=== PATIENT | female | born 1955 | race Caucasian/White ===

== ENCOUNTER → 2016-12-25 | Outpatient (CLI) | payer MEDICARE | LOC: RAD 08:07 | PROVIDERS: ATTEND Internal Medicine Gastroenterology | DX: R10.13 Epigastric pain (principal) | CPT/HCPCS: 78264; A9541 ==

== ENCOUNTER 2016-12-28 17:12 | Emergency (ER) | payer MEDICARE ==
--- NOTE | 2016-12-28 18:57 | ER Document Report ---
ED Medical Screen (RME) - General Time seen by provider: 18:45 Mode of Arrival: Wheelchair Information source: Patient TRAVEL OUTSIDE OF THE U[place] IN LAST 30 DAYS: No - General Chief Complaint: Abdominal Pain Stated Complaint: ABDOMINAL/BACK PAIN Notes: Patient is a 61-year-old female presenting to the emergency department for abdominal and back pain. Patient states she is unable to walk and she has pain that radiates from her mid back down into the back side of her legs. Patient has multiple physicians, care [facility] that she sees. Patient states that she sees Dr. Lawson for her primary care physician and pain management. Patient sees Dr. Belcher for more pain management. Patient has also seen Dr. Esteves for GI. Patient has not experienced any trauma or fall. Patient has recently started to use a walker that was prescribed by Dr. Lawson and has been using it for about 2 weeks. Patient states she has a history of cholecystectomy, kidney stones, diverticulitis. Patient states she was given Toradol and Phenergan at the urgent care without relief. Patient states Toradol usually resolves her pain, but this pain is different. An assessment has been completed on this patient. Patient is in no respiratory distress and lungs are clear, heart is regular, abdomen is palpated, however, the patient is in a seated position and needs further assessment to complete the completed into bed. Patient will be brought to a room in the back for this further assessment. (RAFFI RIVERA) - Related Data Allergies/Adverse Reactions: lisinopril Allergy (Verified 12/28/16 18:21) Sulfa (Sulfonamide Antibiotics) Allergy (Verified 12/28/16 18:21) Past Medical History - Past Medical History Cardiac Medical History: Reports: Hx Congestive Heart Failure - diastolic, Hx Coronary Artery Disease, Hx Hypertension Pulmonary Medical History: Reports: Hx Bronchitis, Hx COPD Endocrine Medical History: Reports: Hx Diabetes Mellitus Type 2 Renal/ Medical History: Denies: Hx Peritoneal Dialysis GI Medical History: Reports: Hx Gastroesophageal Reflux Disease Past Surgical History: Reports: Hx Cholecystectomy Physical Exam - Respiratory Respiratory status: No respiratory distress Breath sounds: Normal - Cardiovascular Rhythm: Regular Course - Re-evaluation Re-evalutation: 12/28/16 18:59 Patient presents emergency, chief plain of back pain that she can't walk and abdominal pain. She states that the pain is intermittent back radiating down both legs. She has chronic back pain ankylosing spondylitis and sees a specialist in [place] she's had 2 recent steroid injections which haven't work she's supposed be getting a third one next week. Her primary care doctor has her on tramadol and Zanaflex as well as oxycodone. She states pain is a little bit worse comes around into her left groin no associated nausea vomiting diarrhea fevers chills or change in appetite no urinary complaints or loss of bowel or bladder function. She recently had a study that showed delayed gastric emptying she was told she had gastroparesis. On examination she is well- appearing nontoxic sitting in the upright position. I can't get a full assessment is no bed in the triage area layered out but her belly is soft with good bowel sounds. Good femoral dorsalis pedis posterior tibial pulses no obvious midline cervical thoracic or lumbar tenderness reflexes are symmetrical 2 point discrimination capillary refill are intact. The urgent care saw her gave her Toradol she said that didn't help her pain major some labs on her but not a CBC your urine electrolytes and liver enzymes are completely normal. I added a CBC and urine and she is going to go to the back to be further dispose lay down and have a full examination performed. 12/28/16 19:00 I personally performed the services described in the documentation reviewed the documentation recorded by my scribe in my presence and it accurately and completely records my words and actions (LANA ANSARI) - Vital Signs Vital signs: Temp Pulse Resp BP Pulse Ox 98.5 F 76 14 146/75 H 99 12/28/16 17:29 12/28/16 17:29 12/28/16 17:29 12/28/16 17:29 12/28/16 17:29 Scribe Documentation - Scribe Written by Ranjite:: Raffi Rivera 12/28/16 19:00 acting as scribe for :: Mika
[2016-12-28 19:35] LABS: APPEARANCE,URINE SLIGHTLY-CLOUDY; BILIRUBIN,URINE NEGATIVE (NEGATIVE); GLUCOSE, URINE NEGATIVE (NEGATIVE); KETONES,URINE NEGATIVE (NEGATIVE); LEUKOCYTE ESTERASE,URINE NEGATIVE (NEGATIVE); NITRITE,URINE NEGATIVE (NEGATIVE); PROTEIN,URINE NEGATIVE (NEGATIVE); URINE SPECIFIC GRAVITY 1.014; UROBILINOGEN,URINE NEGATIVE mg/dL (<2.0)
[2016-12-28 19:37] LABS: ABSOLUTE EOSINOPHILS # (AUTO) 0.1 10^3/uL (0.0-0.6); ABSOLUTE LYMPHOCYTES (AUTO) 3.2 10^3/uL (0.5-4.7); ABSOLUTE MONOCYTES (AUTO) 0.7 10^3/uL (0.1-1.4); ABSOLUTE NEUT (AUTO) 4.4 10^3/uL (1.7-8.2); BASOPHILS % (AUTO) 0.6 % (0-2); EOSINOPHILS % (AUTO) 1.1 % (0-6); HEMATOCRIT 46.2 % (36.0-47.0); HEMOGLOBIN 15.9 g/dL (12.0-15.5); HGB HCT DIFFERENCE 1.5; LYMPHOCYTES % (AUTO) 38.1 % (13-45); MEAN CORPUSCULAR HEMOGLOBIN 30.1 pg (27.0-33.4); MEAN CORPUSCULAR HGB CONC 34.3 g/dL (32.0-36.0); MEAN CORPUSCULAR VOLUME 88 fl (80-97); MONOCYTES % (AUTO) 8.1 % (3-13); RED BLOOD COUNT 5.27 10^6/uL (3.72-5.28); RED CELL DISTRIBUTION WIDTH 13.8 % (11.5-14.0); SEGMENTED NEUTROPHILS % (AUTO) 52.1 % (42-78); WHITE BLOOD COUNT 8.4 10^3/uL (4.0-10.5)
[2016-12-28] MEDS ORDERED: ONDANSETRON 4 MG TAB.RAPDIS PO ONE (19:57)
[2016-12-28] MEDS ORDERED: MORPHINE SULFATE 10 MG/ML INJ IV ONE ×2 (20:35→23:27)
[2016-12-28] MEDS ORDERED: ONDANSETRON HCL INJ/PF 4 MG/2 ML SDV IV ONE ×2 (20:35→23:27)
[2016-12-28] MEDS ORDERED: NORMAL SALINE 1000 ML 500 ML IV PRN (20:35)
--- NOTE | 2016-12-28 20:37 | ER Document Report ---
ED GI/ - General Chief Complaint: Abdominal Pain Stated Complaint: ABDOMINAL/BACK PAIN Time seen by provider: 20:36 Mode of Arrival: Wheelchair Information source: Patient TRAVEL OUTSIDE OF THE [place] IN LAST 30 DAYS: No - HPI Patient complains to provider of: Abdominal pain, Flank pain Onset: Yesterday Timing/Duration: Gradual, Persistent Quality of pain: Achy, Fullness, Pressure, Sharp, Stabbing Severity at maximum: Moderate Severity in ED: Moderate Pain Level: 4 Location: Epigastric, Left flank Associated symptoms: Chills, Diarrhea, Nausea. denies: Vomiting Exacerbated by: Movement Relieved by: Denies Similar symptoms previously: Yes Recently seen / treated by doctor: Yes Notes: 12/29/16 03:40 Patient is a 61-year-old female presenting to the emergency department for left- sided and epigastric abdominal and back pain that have been present since approximately 6 PM yesterday. Patient states she is unable to walk and she has pain that radiates from her mid back down into the back side of her legs. Patient has multiple physicians, with [facility] that she sees. Patient states that she sees Dr. Lawson for her primary care physician and pain management. Patient sees Dr. Belcher for more pain management. Patient has also seen Dr. Esteves for GI. Patient has not experienced any trauma or fall. Patient has recently started to use a walker that was prescribed by Dr. Lawson and has been using it for about 2 weeks or difficulty walking has progressed. Patient states she has a history of cholecystectomy, kidney stones, diverticulitis. Patient states she was given Toradol and Phenergan at the urgent care without relief. Patient states Toradol usually resolves her pain, but this pain is worse than her usual GI pain. - Related Data Allergies/Adverse Reactions: lisinopril Allergy (Verified 12/28/16 18:21) Sulfa (Sulfonamide Antibiotics) Allergy (Verified 12/28/16 18:21) Past Medical History - General Information source: Patient - Social History Smoking Status: Never Smoker Family History: Reviewed & Not Pertinent Patient has suicidal ideation: No Patient has homicidal ideation: No - Past Medical History Cardiac Medical History: Reports: Hx Congestive Heart Failure - diastolic, Hx Coronary Artery Disease, Hx Hypertension Pulmonary Medical History: Reports: Hx Bronchitis, Hx COPD Endocrine Medical History: Reports: Hx Diabetes Mellitus Type 2 Renal/ Medical History: Denies: Hx Peritoneal Dialysis GI Medical History: Reports: Hx Gastroesophageal Reflux Disease Past Surgical History: Reports: Hx Cholecystectomy Review of Systems - Review of Systems Constitutional: No symptoms reported EENT: No symptoms reported Cardiovascular: No symptoms reported Respiratory: No symptoms reported Gastrointestinal: See HPI Genitourinary: No symptoms reported Female Genitourinary: No symptoms reported Musculoskeletal: See HPI Skin: No symptoms reported Hematologic/Lymphatic: No symptoms reported Neurological/Psychological: No symptoms reported -: Yes All other systems reviewed and negative Physical Exam - Vital signs Vitals: Temp Pulse Resp BP Pulse Ox 98.5 F 76 14 146/75 H 99 12/28/16 17:29 12/28/16 17:29 12/28/16 17:29 12/28/16 17:29 12/28/16 17:29 Interpretation: Normal - General General appearance: Alert In distress: None - HEENT Head: Normocephalic, Atraumatic Eyes: Normal Conjunctiva: Normal Extraocular movements intact: Yes Eyelashes: Normal Pupils: PERRL - Respiratory Respiratory status: No respiratory distress Chest status: Nontender Breath sounds: Normal Chest palpation: Normal - Cardiovascular Rhythm: Regular Heart sounds: Normal auscultation Murmur: No - Abdominal Inspection: Normal Distension: No distension Bowel sounds: Normal Tenderness: Tender - Epigastric and left flank Organomegaly: No organomegaly - Back Back: Tender - Tender to palpate paraspinal musculature - Extremities General upper extremity: Normal inspection, Nontender, Normal color, Normal ROM , Normal temperature General lower extremity: Normal inspection, Nontender, Normal color, Normal temperature. No: Mark's sign - Neurological Neuro grossly intact: Yes Cognition: Normal Orientation: AAOx4 Miguel Coma Scale Eye Opening: Spontaneous Burton Coma Scale Verbal: Oriented Burton Coma Scale Motor: Obeys Commands Miguel Coma Scale Total: 15 Speech: Normal - Psychological Associated symptoms: Normal affect, Normal mood - Skin Skin Temperature: Warm Skin Moisture: Dry Skin Color: Normal Course - Re-evaluation Re-evalutation: 12/28/16 23:28 Patient resting comfortably, reports feeling much better, lab and imaging findings discussed with her at bedside which are unremarkable, patient will be discharged with instructions for follow-up and advised to return if symptoms worsen, patient acknowledges understanding and agreement with this plan - Vital Signs Vital signs: Temp Pulse Resp BP Pulse Ox 97.9 F 69 14 135/76 H 96 12/29/16 00:34 12/29/16 00:34 12/29/16 00:34 12/29/16 00:34 12/29/16 00:34 - Laboratory Result Diagrams: 12/28/16 19:00 12/28/16 19:00 Laboratory results interpreted by me: 12/28/16 12/28/16 12/28/16 19:00 19:00 19:06 Hgb 15.9 H Glucose 112 H Calcium 10.4 H ALT 56 H Urine Ascorbic Acid 40 H - Diagnostic Test Radiology reviewed: Image reviewed, Reports reviewed Discharge - Discharge Clinical Impression: Abdominal pain Qualifiers: Abdominal location: generalized Qualified Code(s): R10.84 - Generalized abdominal pain Back pain Qualifiers: Back pain location: back pain in unspecified location Chronicity: chronic Back pain laterality: unspecified Qualified Code(s): M54.9 - Dorsalgia, unspecified Condition: Stable Disposition: HOME, SELF-CARE Instructions: Abdominal Pain ([facility]), Antinausea Medication ([facility]), Low Back Pain ([facility]), Chronic Back Pain ([facility]) Additional Instructions: Follow up with your primary care provider in one to 2 days. Return to the emergency room immediately if symptoms worsen or any additional concerns. Prescriptions: Promethazine HCl [Phenergan 25 mg Tablet] 25 - 50 mg PO ASDIR PRN #12 tablet PRN Reason:
[2016-12-28 20:41] LABS: ALANINE AMINOTRANSFERASE 56 U/L (9-52); ALBUMIN 4.6 g/dL (3.5-5.0); ALKALINE PHOSPHATASE 93 U/L (38-126); ANION GAP 19 (5-19); ASPARTATE AMINO TRANSFERASE 33 U/L (14-36); BILIRUBIN,DIRECT 0.4 mg/dL (0.0-0.4); BILIRUBIN,TOTAL 0.7 mg/dL (0.2-1.3); BLOOD UREA NITROGEN 13 mg/dL (7-20); CALCIUM 10.4 mg/dL (8.4-10.2); CARBON DIOXIDE 23 mmol/L (22-30); CHLORIDE 103 mmol/L (98-107); CREATININE RESULT 0.81 mg/dL (0.52-1.25); GLUCOSE 112 mg/dL (75-110); POTASSIUM 3.6 mmol/L (3.6-5.0); SODIUM 144.9 mmol/L (137-145); TOTAL PROTEIN 7.8 g/dL (6.3-8.2)
[2016-12-28] MEDS ORDERED: ONDANSETRON ODT 4 MG TAB (6 TAB/DSPK) PO PRN (23:29)
[2016-12-29 00:48] VITALS: BP 135/76
== END 2016-12-29 00:40 | disposition home or self-care (01) ==
LOC: ER 17:12
DX: R10.84 Generalized abdominal pain (principal); M54.9 Dorsalgia, unspecified; R10.13 Epigastric pain; Z79.899 Other long term (current) drug therapy
CPT/HCPCS: 96376; 99284; 96374; 96375; 36415; 83690; 85025; 80053; 81001; 74177; J2270 ×2; J2405 ×2; A9270

== ENCOUNTER 2018-08-18 20:01 | Emergency (ER) | payer MEDICARE ==
[2018-08-18 21:02] LABS: ABSOLUTE EOSINOPHILS # (AUTO) 0.1 10^3/uL (0.0-0.6); ABSOLUTE LYMPHOCYTES (AUTO) 1.7 10^3/uL (0.5-4.7); ABSOLUTE MONOCYTES (AUTO) 0.7 10^3/uL (0.1-1.4); ABSOLUTE NEUT (AUTO) 4.4 10^3/uL (1.7-8.2); BASOPHILS % (AUTO) 0.7 % (0-2); EOSINOPHILS % (AUTO) 1.6 % (0-6); HEMATOCRIT 51.5 % (36.0-47.0); HEMOGLOBIN 17.6 g/dL (12.0-15.5); LYMPHOCYTES % (AUTO) 24.5 % (13-45); MEAN CORPUSCULAR HEMOGLOBIN 31.1 pg (27.0-33.4); MEAN CORPUSCULAR HGB CONC 34.2 g/dL (32.0-36.0); MEAN CORPUSCULAR VOLUME 91 fl (80-97); MONOCYTES % (AUTO) 10.7 % (3-13); PLATELET COUNT 247 10^3/uL (150-450); RED BLOOD COUNT 5.68 10^6/uL (3.72-5.28); RED CELL DISTRIBUTION WIDTH 13.2 % (11.5-14.0); SEGMENTED NEUTROPHILS % (AUTO) 62.5 % (42-78); TOTAL CELLS COUNTED % (AUTO) 100 %
--- NOTE | 2018-08-18 21:26 | RADIOLOGY REPORT (SQ) ---
EXAM DESCRIPTION: XR CHEST 1 VIEW COMPLETED DATE/TME: 08/18/2018 20:53 CLINICAL HISTORY: 62 years Female SOB; Hx diastolic HF COMPARISON: None. FINDINGS: The cardiomediastinal silhouette appears unremarkable. No consolidating infiltrates or pleural effusions. No pneumothorax. IMPRESSION: No acute abnormality is identified.
--- NOTE | 2018-08-18 21:39 | ER Document Report ---
ED General - General Chief Complaint: Blood Pressure Problem Stated Complaint: BLOOD PRESSURE ISSUE Time Seen by Provider: 08/18/18 20:30 Notes: Patient is a 62-year-old female with a past medical history of hypertension, diastolic heart failure, chronic pain, presents with concerns regarding low blood pressure. The patient states that she woke up last night having a nightmare, felt she was suffocating. States that she took her blood pressure and found it to be 148 on 108 so she took 10 mg of hydralazine and an unknown dose of torsemide. States that she checked her blood pressure several times a day, that had not improved since that she took an additional 20 mill grams of hydralazine as well as an extra dose of losartan. Tonight she states that she began to feel increasingly lightheaded and generally unwell, took her blood pressure and found to be in the 80s systolic prompting her to come to the emergency department. She denies a history of similar events in the past. She states that she has not been directed by her doctor to take extra quantities of medications for certain blood pressures. She denies any current chest pain or shortness of breath. Nothing seems to improve or worsen her current symptoms. TRAVEL OUTSIDE OF THE [place] IN LAST 30 DAYS: No - Related Data Allergies/Adverse Reactions: lisinopril Allergy (Verified 08/18/18 22:28) Sulfa (Sulfonamide Antibiotics) Allergy (Verified 08/18/18 22:28) Past Medical History - General Information source: Patient - Social History Smoking Status: Never Smoker Frequency of alcohol use: None Drug Abuse: None Lives with: Family Family History: Reviewed & Not Pertinent - Past Medical History Cardiac Medical History: Reports: Hx Congestive Heart Failure - diastolic, Hx Coronary Artery Disease, Hx Hypertension Pulmonary Medical History: Reports: Hx Bronchitis, Hx COPD Endocrine Medical History: Reports: Hx Diabetes Mellitus Type 2 Renal/ Medical History: Reports: Hx Kidney Stones. Denies: Hx Peritoneal Dialysis GI Medical History: Reports: Hx Gastroesophageal Reflux Disease Past Surgical History: Reports: Hx Abdominal Surgery - 3lap, Hx Appendectomy, Hx Section - 3, Hx Cholecystectomy, Hx Hysterectomy - Immunizations Hx Diphtheria, Pertussis, Tetanus Vaccination: Yes Hx Pneumococcal Vaccination: 09/03/13 Review of Systems - Review of Systems Notes: Constitutional: Negative for fever. HENT: Negative for sore throat. Eyes: Negative for visual changes. Cardiovascular: Negative for chest pain. Respiratory: Negative for shortness of breath. Gastrointestinal: Negative for abdominal pain, vomiting or diarrhea. Genitourinary: Negative for dysuria. Musculoskeletal: Negative for back pain. Skin: Negative for rash. Neurological: Negative for headaches, weakness or numbness. 10 point ROS negative except as marked above and in HPI. Physical Exam - Vital signs Vitals: Temp Pulse BP Pulse Ox 97.5 F 77 86/58 L 94 08/18/18 20:08 08/18/18 20:08 08/18/18 20:08 08/18/18 20:08 Interpretation: Hypotensive Notes: PHYSICAL EXAMINATION: GENERAL: Well-appearing, well-nourished and in no acute distress. HEAD: Atraumatic, normocephalic. EYES: Pupils equal round and reactive to light, extraocular movements intact, sclera anicteric, conjunctiva are normal. ENT: nares patent, oropharynx clear without exudates. Moist mucous membranes. NECK: Normal range of motion, supple without lymphadenopathy LUNGS: Breath sounds clear to auscultation bilaterally and equal. No wheezes rales or rhonchi. HEART: Regular rate and rhythm without murmurs ABDOMEN: Soft, nontender, normoactive bowel sounds. No guarding, no rebound. No masses appreciated. EXTREMITIES: Normal range of motion, no pitting or edema. No cyanosis. NEUROLOGICAL: No focal neurological deficits. Moves all extremities spontaneously and on command. PSYCH: Normal mood, normal affect. SKIN: Warm, Dry, normal turgor, no rashes or lesions noted. Course - Re-evaluation Re-evalutation: 08/18/18 21:48 Patient presents with concerns of low blood pressure after she took, 1 extra tablet 30 mg of hydralazine extra beyond her normal, an extra dose of torsemide , as well as an extra dose of losartan after she woke up last night after having a nightmare, felt like she could not breathe, checked her blood pressure and found her blood pressure to be 146 on 108. The patient denies any symptoms beyond concerned about her blood pressure. Labs are obtained by nursing staff, all were canceled except CBC as these are not indicated given the absence of any complaints beyond low blood pressure. A chest x-ray was also obtained which is otherwise unremarkable. Patient's blood pressure has remained relatively stable in the low 100s to upper 90s here in the emergency department. I do not see any indication for hospitalization or further workup at this point given the patient does have a clear examination for why this occurred. I have strongly advised her to not take extra medications under any circumstance without the direct supervision of a physician. At this time will discharge with return precautions and follow-up recommendations. Verbal discharge instructions given a the bedside and opportunity for questions given. Medication warnings reviewed. Patient is in agreement with this plan and has verbalized understanding of return precautions and the need for primary care follow-up in the next 24-72 hours. - Vital Signs Vital signs: Temp Pulse Resp BP Pulse Ox 97.5 F 77 12 108/58 L 94 08/18/18 20:08 08/18/18 20:08 08/18/18 23:31 08/18/18 23:31 08/18/18 23:31 - Laboratory Result Diagrams: 08/18/18 20:47 08/18/18 20:47 Laboratory results interpreted by me: 08/18/18 20:47 RBC 5.68 H Hgb 17.6 H Hct 51.5 H - Diagnostic Test Radiology reviewed: Image reviewed, Reports reviewed Radiology results interpreted by me: 08/18/18 21:50 Chest x-ray: No acute infiltrate or pneumothorax Discharge - Discharge Clinical Impression: Medication error Hypotension Qualifiers: Hypotension type: unspecified hypotension type Qualified Code(s): I95.9 - Hypotension, unspecified Condition: Good Disposition: HOME, SELF-CARE Additional Instructions: Please never take more of your medications are prescribed to you. Your blood pressure is moderately low today due to taking extra hydralazine, losartan, as well as torsemide. Please follow-up with your general physician regarding today 's concerns. Please be sure to drink plenty of fluid over the next several days. Referrals: LIAT DUNCAN MD [Primary Care Provider] - Follow up as needed
[2018-08-18] MEDS ORDERED: NORMAL SALINE 1000 ML 500 ML IV ONE (21:50)
[2018-08-18 23:34] VITALS: BP 108/58
--- NOTE | 2018-08-19 00:50 | EKG REPORT ---
SEVERITY:- ABNORMAL ECG - SINUS RHYTHM LEFT ANTERIOR FASCICULAR BLOCK PROBABLE LEFT VENTRICULAR HYPERTROPHY : Confirmed by: Anabel Briggs MD 19-Aug-2018 00:49:11
== END 2018-08-18 23:52 | disposition home or self-care (01) ==
LOC: ER 20:01
DX: T50.901A Poisoning by unspecified drugs, medicaments and biological substances, accidental (unintentional), initial encounter (principal); I95.9 Hypotension, unspecified; R42 Dizziness and giddiness; I11.0 Hypertensive heart disease with heart failure; I50.30 Unspecified diastolic (congestive) heart failure; J44.9 Chronic obstructive pulmonary disease, unspecified; E11.9 Type 2 diabetes mellitus without complications
CPT/HCPCS: 93005; 99284; 36415; 85025; 71045; 93010; J7030

== ENCOUNTER 2019-04-05 17:02 | Emergency (ER) | payer MEDICARE ==
--- NOTE | 2019-04-05 17:40 | ER Document Report ---
ED Medical Screen (RME) - General Chief Complaint: Fall Injury Stated Complaint: FALL Time Seen by Provider: 04/05/19 17:30 Primary Care Provider: LIAT DUNCAN MD [Primary Care Provider] - Follow up as needed Mode of Arrival: Wheelchair Information source: Patient Notes: This 63 year old female presents to the ED with c/o left side hip pain since sunday. Patient [place] up, got dizzy and fell over onto her hip. She reports since then that is been hard to walk, limited weight bearing to the left leg, shuffling when she walks. Patient is on pain managment for ankylosing spondylosis polyarthritis. Patient takes tramadol for pain and is taking them at all now. She also reports she uses CBD in him for the pain. Also has history of DM, CHF. Patient has no other complaints such as fever vomiting diarrhea. Denies chest pain shortness of breath. I have greeted and performed a rapid initial assessment of this patient. A comprehensive ED assessment and evaluation of the patient, analysis of test results and completion of the medical decision making process will be conducted by additional ED providers. Dictation of this chart was performed using voice recognition software; therefore, there may be some unintended grammatical errors. TRAVEL OUTSIDE OF THE [place] IN LAST 30 DAYS: No - Related Data Allergies/Adverse Reactions: lisinopril Allergy (Verified 04/05/19 17:04) Sulfa (Sulfonamide Antibiotics) Allergy (Verified 04/05/19 17:04) Past Medical History - Past Medical History Cardiac Medical History: Reports: Hx Congestive Heart Failure - diastolic, Hx Coronary Artery Disease, Hx Hypertension Pulmonary Medical History: Reports: Hx Bronchitis, Hx COPD Endocrine Medical History: Reports: Hx Diabetes Mellitus Type 2 Renal/ Medical History: Reports: Hx Kidney Stones. Denies: Hx Peritoneal Dialysis GI Medical History: Reports: Hx Gastroesophageal Reflux Disease Past Surgical History: Reports: Hx Abdominal Surgery - 3lap, Hx Appendectomy, Hx Section - 3, Hx Cholecystectomy, Hx Hysterectomy - Immunizations Hx Diphtheria, Pertussis, Tetanus Vaccination: Yes Physical Exam - Vital signs Vitals: Temp Pulse Resp BP Pulse Ox 98.0 F 65 18 143/69 H 95 04/05/19 17:09 04/05/19 17:09 04/05/19 17:09 04/05/19 17:09 04/05/19 17:09 Course - Vital Signs Vital signs: Temp Pulse Resp BP Pulse Ox 98.0 F 65 18 143/69 H 95 04/05/19 17:09 04/05/19 17:09 04/05/19 17:09 04/05/19 17:09 04/05/19 17:09 Doctor's Discharge - Discharge Referrals: LIAT DUNCAN MD [Primary Care Provider] - Follow up as needed
--- NOTE | 2019-04-05 18:41 | RADIOLOGY REPORT (SQ) ---
EXAM DESCRIPTION: HIP LEFT AP/LATERAL COMPLETED DATE/TIME: 04/05/2019 6:31 pm REASON FOR STUDY: fell in ocean, pain COMPARISON: None. NUMBER OF VIEWS: Two views. TECHNIQUE: AP pelvis and additional frog-leg view of the left hip. LIMITATIONS: None. FINDINGS: MINERALIZATION: Normal. LEFT HIP: No fracture or dislocation. No worrisome bone lesions. RIGHT HIP: No fracture or dislocation. No worrisome bone lesions. PUBIS AND ISCHIUM: No fracture. PELVIS: No fracture. SACRUM: No fracture or dislocation. No worrisome bone lesions. LOWER LUMBAR SPINE: No fracture or dislocation. No worrisome bone lesions. No significant disc disea se. SOFT TISSUES: No findings. OTHER: No other significant finding. IMPRESSION: NEGATIVE STUDY OF THE LEFT HIP AND PELVIS. NO RADIOGRAPHIC EVIDENCE OF ACUTE INJURY. TECHNICAL DOCUMENTATION: JOB ID: [id number] [employer]- All Rights Reserved Reading location - IP/workstation name: [email or web address]
--- NOTE | 2019-04-05 19:36 | ER Document Report ---
HPI - HPI Patient complains to provider of: hip pain Time Seen by Provider: 04/05/19 17:30 Onset: Other Onset/Duration: Sudden, Persistent Quality of pain: Achy Severity: Moderate Pain Level: 2 Context: This 63 year old female presents to the ED with c/o left side hip pain since sunday. [place], got dizzy and fell over onto her hip. She reports since then that it has been hard to walk, limited weight bearing to the left leg, shuffling when she walks. Patient is on pain managment for ankylosing spondylosis polyarthritis. Patient takes tramadol for pain and is taking her own tramadol now. She was offered a tramadol but she wanted to take her own med. She also reports she uses CBD and hemp for the pain. Also has history of DM, CHF. Patient has no other complaints such as fever vomiting diarrhea. Denies chest pain shortness of breath. Associated Symptoms: None Exacerbated by: Movement, Walking Relieved by: Denies Similar symptoms previously: Yes Recently seen / treated by doctor: No - REPRODUCTIVE Reproductive: DENIES: : Past Medical History - General Information source: Patient - Social History Smoking Status: Current Every Day Smoker Chew tobacco use (# tins/day): No Frequency of alcohol use: Occasional Drug Abuse: None Lives with: Family Family History: Reviewed & Not Pertinent Patient has suicidal ideation: No Patient has homicidal ideation: No - Past Medical History Cardiac Medical History: Reports: Hx Congestive Heart Failure - diastolic, Hx Coronary Artery Disease, Hx Hypertension Pulmonary Medical History: Reports: Hx Bronchitis, Hx COPD Endocrine Medical History: Reports: Hx Diabetes Mellitus Type 2 Renal/ Medical History: Reports: Hx Kidney Stones. Denies: Hx Peritoneal Dialysis GI Medical History: Reports: Hx Gastroesophageal Reflux Disease Past Surgical History: Reports: Hx Abdominal Surgery - 3lap, Hx Appendectomy, Hx Section - 3, Hx Cholecystectomy, Hx Hysterectomy - Immunizations Hx Diphtheria, Pertussis, Tetanus Vaccination: Yes Hx Pneumococcal Vaccination: 09/03/13 Vertical Provider Document - CONSTITUTIONAL Agree With Documented VS: Yes Exam Limitations: No Limitations General Appearance: WD/WN, Mild Distress - winces when hip palpated - INFECTION CONTROL TRAVEL OUTSIDE OF THE [place] IN LAST 30 DAYS: No - HEENT HEENT: Atraumatic, Normocephalic - NECK Neck: Supple - RESPIRATORY Respiratory: No Respiratory Distress - CARDIOVASCULAR Cardiovascular: Regular Rate - GI/ABDOMEN Gastrointestinal: Abdomen Soft - MUSCULOSKELETAL/EXTREMETIES Musculoskeletal/Extremeties: CECELIA, FROM, Tender - left hip ttp, she is able to stand up and sit down. She complains of pain with any movement. she had no problems moving from chair to chair - NEURO Level of Consciousness: Awake, Alert, Appropriate Motor/Sensory: No Motor Deficit - DERM Integumentary: Warm, Dry Adult Front & Back Diagram: 1 - reports pain Course - Re-evaluation Re-evalutation: 04/05/19 19:43 This 63 year old female presents to the ED with c/o left side hip pain since sunday. Patient [place], got dizzy and fell over onto her hip. She reports since then that is been hard to walk, limited weight bearing to the left leg, shuffling when she walks. Patient is on pain managment for ankylosing spondylosis polyarthritis. Patient takes tramadol for pain and is taking a tramadol now. She also reports she uses CBD and hemp for the pain. Also has history of DM, CHF. Patient has no other complaints such as fever vomiting diarrhea. Denies chest pain shortness of breath. Patient was instructed on negative hip x-ray. She is very unhappy. She reports our seats hurt and she hurts now because she has been sitting so long. She reports she came here because her own pain medication was not helping. She was instructed to follow-up with her primary care provider for further evaluation or referral to orthopedics as indicated. Hip X-Ray 04/05/19 17:34 IMPRESSION: NEGATIVE STUDY OF THE LEFT HIP AND PELVIS. NO RADIOGRAPHIC EVIDENCE OF ACUTE INJURY. - Vital Signs Vital signs: Temp Pulse Resp BP Pulse Ox 98.0 F 65 18 143/69 H 95 04/05/19 17:09 04/05/19 17:09 04/05/19 17:09 04/05/19 17:09 04/05/19 17:09 - Diagnostic Test Radiology reviewed: Image reviewed, Reports reviewed Discharge - Discharge Clinical Impression: Left hip pain Condition: Stable Disposition: HOME, SELF-CARE Instructions: Use of Frmn-Arn-Tignxyj Ibuprofen ([facility]), Ice & Elevation ([facility]) Additional Instructions: *You have been evaluated for hip pain *the xray was negative for an acute fracture *Rest/Ice/Elevate your hip *Follow up with your primary care provider within the next 3 days for referral to orthopedics as indicated. *Take Tylenol Motrin as indicated for pain. *Return to ED for worsening condition, changes, needs Referrals: LIAT DUNCAN MD [Primary Care Provider] - Follow up in 3-5 days
[2019-04-05 20:01] VITALS: BP 151/80
== END 2019-04-05 20:05 | disposition home or self-care (01) ==
LOC: ER 17:02
DX: M25.552 Pain in left hip (principal); R42 Dizziness and giddiness; W19.XXXA Unspecified fall, initial encounter; F17.200 Nicotine dependence, unspecified, uncomplicated; E11.9 Type 2 diabetes mellitus without complications; I50.9 Heart failure, unspecified; Z79.899 Other long term (current) drug therapy; I25.10 Atherosclerotic heart disease of native coronary artery without angina pectoris; J44.9 Chronic obstructive pulmonary disease, unspecified; I11.0 Hypertensive heart disease with heart failure
CPT/HCPCS: 99283